=== PATIENT | male | born 1980 | race Caucasian/White ===

== ENCOUNTER 2021-08-30 12:54 | Outpatient (RCR) | payer BC, SELFPAY ==
[2021-08-30 13:32] VITALS: BP 143/112; PULSE 98; RESP 18; TEMP 36.4; BMI 68.5
--- NOTE | 2021-08-30 14:14 | PCM.WC.HP ---
History of Present Illness Date of Service: 08/30/21 Chief Complaint: Right second toe ulcer History of Wound: This 41-year-old male with significant past medical history of diabetes and hypertension sustained an injury on his second right toe from an elongated ingrown great toenail consistent with a laceration on August 12 after he was walking all day at work. 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 He was treated with dressings antibiotics. Throughout this healing process he developed a blister circumferentially and then subsequently a wound to the tip of his right second toe. He reports it has been red for a couple of weeks. He has been applying antibiotic ointment. He walks in a slide sandals today. He denies other known traumatic incident or odor or purulence. He denies claudication. He does have lack of complete sensation consistent with his type I diabetic neuropathy. Progress of Wound: cellulitis noted PFSH Home Medications amoxicillin-pot clavulanate [Augmentin] 1 tab PO BID #14 tab 08/30/21 [Rx Last Taken Unknown] insulin glargine [Lantus U-100 Insulin] 50 unit SUBCUT QPM 08/30/21 [History Last Taken Unknown] insulin lispro [Humalog Pen] 0 unit SUBCUT TID 08/30/21 [History Last Taken Unknown] lisinopril 20 mg PO DAILY 08/30/21 [History Last Taken Unknown] Allergy/AdvReac Type Severity Reaction Status Date / Time No Known Allergies Allergy Verified 08/30/21 13:27 Social History Smoking Status: Light Smoker (<10/day) ROS Constitutional Constitutional: Denies chills, fatigue or fever(s) Cardiovascular Cardiovascular: Reports erythema on extremities; Denies edema or nausea Respiratory/Chest Respiratory/Chest: Denies dyspnea Gastrointestinal Gastrointestinal: Denies vomiting Musculoskeletal Musculoskeletal: Reports numbness Integumentary Integumentary: Reports skin ulcer Neurologic Neurologic: Reports paresthesias Vital Signs Vital Signs Vital Signs: 08/30/21 13:32 Temperature 97.6 F L Temperature Source Temporal Pulse Rate 98 Respiratory Rate 18 Blood Pressure 143/112 H Blood Pressure Mean 122 Blood Pressure Source Monitor Blood Pressure Position Sitting Blood Pressure Location Left Arm Weight Weight: 290 kg Body Mass Index (BMI) 68.5 Physical Exam Const alert and oriented x3 General Appearance: cooperative HEENT normocephalic Extremity Extremity Narrative: No calf tenderness Diminished pulses Muscle wasting noted Dorsal contraction of lesser toes including the second toe No fluctuance or bogginess on palpation. General Extremity: edema and no tenderness to palpation of joints or extremities; Negative for cyanosis Skin Skin Narrative: no purulence, no streaking, no odor. Erythema to the extends to the distal half. No distinct bulbous shaped changes noted. No deep probing or necrosis. General Skin Exam: Negative for erythema Neuro Neuro Narrative: lack of normal epicritic sensation via light touch is consistent with neuropathy status Psych cooperative and affect normal Debridement Note Debridement Note Wound debrided: Right second toe Wound Grade/Stage: 1 Type of Debridement: Excisional debridement Anesthesia Used: 4% Lidocaine Solution Depth: in the subcutaneous layer Percentage of wound debrided: 100 Instrument Used: #15 blade Tissue Removed: fibrous, devitalized subcutaneous, biofilm, slough Severity: Fat Layer Exposed Amount of bleeding with debridement: Mild Bleeding Controlled with: Pressure Patient tolerated procedure: Patient tolerated procedure well Post-Debridement Measurements and Additional Note: Post-Debridement Measurements/Treatment - Nurse 1 - General Ulcer Assessment Start: 08/30/21 13:27 Freq: Status: Active Protocol: SUZAN Activity Type Activity Date Activity User E-Sign Co-Sign Detail Recorded Client Recorded Date Recorded By Document 08/30/21 13:32 [id number] 08/30/21 13:44 RB 08/30/21 13:32 - Today's Visit Information Type of service Initial Visit Arrival Mode Ambulatory Transfer Assistance None Patient Identification Verified (Name & Yes ) Patient Requires Transmission-Based No Precautions Height and Weight Height 6 ft 9 in Weight 290 kg Weight in Pounds 639.3 lbs Body Mass Index (BMI) 68.5 BMI Classification Obese BSA - Sherita 3.80 Vital Signs Temperature (97.8 F-99.1 F) 97.6 F L Temperature Source Temporal Pulse Rate (60-100) 98 Pulse Location Monitor Respiratory Rate (12-18) 18 Respiratory rate source Observation Blood Pressure (90/60-120/80) 143/112 H Blood Pressure Mean 122 Source Monitor Position Sitting Blood Pressure Location Left Arm History Since Last Visit- (Skip if this is Patient's initial visit) Have you changed medications since your No last visit? Any new allergies or adverse reactions No Had a fall/change in ADL's that may No increase risk of falls Signs or symptoms of abuse and/or No neglect since last visit Have you been in the hospital since your No last visit? Has dressing in place as prescribed Yes Has compression in place as prescribed No Has offloadiing in place as prescribed No Experienced any changes in pain level or No management Left Footwear Regular Shoe Right Footwear Regular Shoe Pain Scale: 0-10 Numeric Is Patient Pain Free? Yes Lower Extremity Assessment/ Foot Assessment/ Toe Nail Assessment Right -Posterior Tibial Palpable Yes -Dorsalis Pedis Palpable Yes -Extremity Color Normal -Hair Growth on Legs Yes -Hair Growth on Toes Yes -Temperature of Extremity Warm -Dependent Rubor No -Blanched when Elevated No -Lipodermatosclerosis No -Other Deformity No -Prior Foot Ulcer No -Charcot Joint No -Prior Amputation No -Thick No -Discolored No -Deformed No -Improper Length & Hygeine Yes Left -Posterior Tibial Palpable Yes -Dorsalis Pedis Palpable Yes -Extremity Color Normal -Hair Growth on Legs Yes -Hair Growth on Toes Yes -Temperature of Extremity Warm -Capillary Refill Greater than 3 Seconds -Dependent Rubor No -Blanched when Elevated No -Lipodermatosclerosis No -Other Deformity No -Prior Foot Ulcer No -Charcot Joint No -Prior Amputation No -Thick No -Discolored No -Deformed No -Improper Length & Hygeine Yes Neuropathy Assessment Feet - Top Side and Bottom <Entered> (a) Communication Assessment Preferred language Chinese Realtime Reporter Required No Able to Read Yes Able to Write Yes Communication Tools None Caregiver Communication Skills No Impairment Impairment Right Hearing Abillity Normal Left Hearing Abillity Normal Visual Assistive Devices Glasses Teaching Assessment Preferences Verbal,Written, Demonstration Barriers to Learning None Readiness To Learn Good Willingness to Engage in Self Management Med Activies Readiness to Engage in Self Management Med Activities Anxiety Level Calm Cooperation Cooperative Perception Coherent Interest in Health Problem Asks Questions Education Importance Acknowledges Need Does Patient Smoke tobacco or other Yes substances Smoking Status Light Smoker (< 10/day) Is Patient Diabetic Yes Functional Assessment Recent Decline in Ability to Perform Denies Any Declines Assistive Device With Patient No Culture/Zoroastrianism/Hot Header Operator Cultural/Zoroastrianism Needs that may affect No Treatment Plan Would you allow our hospital customs examiner to No meet you for the purpose of spiritual/ emotional support? Hot Header Operator to contact place of uatsdin No Teaching: Wound Center *Welcome to the Wound Center -Person Taught Patient -Teaching Method Discussion, Demonstration -Response to teaching Verbalize understanding (a) 1 - - throughout except lateral + bilateral feet WC - Nurse 1 - General Ulcer Measurement Start: 08/30/21 13:27 Freq: Status: Active Protocol: Activity Type Activity Date Activity User E-Sign Co-Sign Detail Recorded Client Recorded Date Recorded By Document 08/30/21 13:32 RB [id number] 08/30/21 13:44 RB 08/30/21 13:32 Wound Center Nurse 1 1. R second toe plantar -Combined with other wound No -Current Size (cm) - Length 1 -Current Size (cm) - Width 1.2 -Current Size (cm) - Depth 0.2 -Total Square Cm 1.2 -Photo Taken Yes -Tunneling No -Undermining/Tunneling No -Circular Undermining No -Exudate Amt Medium -Exudate Type Serosanguineous -Wound Margin Distinct, Outline Attached -Granulation Amt Large (67-100%) -Granulation Quality [place] -Slough/Fibrin Yes -Necrosis Amt Small (1-33%) -Necrotic Tissue Type Adherent Slough -Structure Exposed N/A -Texture (Daisy-wound Skin Appearance) Assessed,Callus -Moisture (Daisy-wound Skin Appearance) Assessed -Color (Daisy-wound Skin Appearance) Assessed -Temperature (Daisy-wound Skin No Abnormality Appearance) (Pt Warm) -Tenderness on Palpation (Daisy-wound No Skin Appearance) -Ulcer Cleansing Wound Cleanser -Foul Odor after Cleansing No -Anesthetic Used 4% Lidocaine Solution Lower Limb Edema Present Yes Right Calf (cm) 41 Right Ankle (cm) 27.5 Left Calf (cm) 42 Left Ankle (cm) 26 WC - Nurse 2 - General Ulcer CM Notes Start: 08/30/21 13:27 Freq: Status: Active Protocol: Activity Type Activity Date Activity User E-Sign Co-Sign Detail Recorded Client Recorded Date Recorded By Document 08/30/21 13:56 [id number] 08/30/21 14:09 08/30/21 13:56 Wound Center Nurse 2 1. R second toe plantar -Time 14:07 -Correct Patient Yes -Correct Side, Site, Position Yes -Correct Procedure Yes -Procedure Performed Yes -Type of Procedure Debridement -Clinical Debridement Subcutaneous -Tissue Removed Subcutaneous -Post Debridement (cm) - Length 1.1 -Post Debridement (cm) - Width 1.3 -Post Debridement (cm) - Depth 0.2 -Total Square (Post) (cm) 1.43 -Area of Debridement (cm) - Length 1.1 -Area of Debridement (cm) - Width 1.3 -Total Square (Area) (cm) 1.43 -Tunneling No -Undermining/Tunneling No -Circular Undermining No -Wound/Ulcer Outcome Not Healed -Ulcer Cleansing Rinsed/ Irrigated with Saline -Foul Odor after Cleansing No -Bioengineered Tissue No -Bleeding Controlled with Pressure -Offloading Yes -Type of Offloading Knee Walker -Debridement - Subq, 1st 20sq cm Yes Pain Scale: 0-10 Numeric Is Patient Pain Free? Yes Assessment/Plan Assessment/Plan (1) Non-pressure chronic ulcer of other part of right foot with fat layer exposed: CODE(S): L97.512 - Non-pressure chronic ulcer of other part of right foot with fat layer exposed (2) Hammertoe of right foot: CODE(S): M20.41 - Other hammer toe(s) (acquired), right foot (3) Type 1 diabetes, uncontrolled, with neuropathy: CODE(S): E10.40 - Type 1 diabetes mellitus with diabetic neuropathy, unspecified; E10.65 - Type 1 diabetes mellitus with hyperglycemia (4) Malnutrition: CODE(S): E46 - Unspecified protein-calorie malnutrition PLAN: I reviewed and discussed his case today. Debridement was performed today as noted in the clinical panel to all of the ulcer sites The following work up and care recommendations were made: Dressing: Aquacel Ag Wash: Antibacterial soap water Tissue growth optimization: Will be considered if lack of healing progress is noted Offload: To heel weightbearing surgical shoe. He wears a size 15-16 and there is not an appropriate size available today. A written prescription with dual density offloading Plastizote liners with pocket was provided for him to obtain at the foot and ankle Center. He will call to schedule this. Vascular: He has great pulses and hair to lower extremity. If he has lack of healing after 1 month noninvasive vascular studies will be ordered. Edema: Controlled Infection: Erythema is noted without purulence or odor. I recommend Augmentin. This was electronically sent to [facility] in [place]. After debridement aerobic, anaerobic, and MRSA PCR cultures were obtained. He understands updated antibiotics may be recommended after the results are reviewed. I recommend further work-up with a foot x-ray and labs (CBC, CMP, A1c, ESR, CRP). Self-reported last A1c was 7.1%. Orders were provided. Pain: Controlled due to neuropathy Host factors: He has type 1 diabetes and he also smokes. He understands glucose management is imperative for healing. He is amendable to see food and beverage service manager and a referral was provided today. I also recommend nutritional supplements of David. Sample was provided. He was advised on smoking cessation. Anticipated healing time was reviewed. He is concerned about how he has to walk all day at work. He will look into short-term disability options and he was advised given the forms to fill out if he elects to proceed forward. He understands he is at risk for amputation further infection due to his comorbidities. I answered all the patient's questions. To return to the wound healing center in 1 week or call sooner if the patient has any questions or concerns. Note: [email or web address] speech recognition electric razor assembler software was used to create portions of this document. Sound-alike and misspelled words, as well as other electric razor assembler errors may be contained in the documentation. The medical decision making level is moderate based on data including at least three of the following: review of prior external notes, review of a test, ordering a test, assessment requiring an independent historian. The medical decision making level is moderate. There is noted moderate risk of morbidity after considering this treatment plan and diagnostic data. Considerations were given to prescription management, decisions regarding surgical options, or social determinants of health. The problems addressed require a moderate decision making level which includes one or more chronic illnesses (w/ exacerbation, progression, or side effects), two or more stable chronic illnesses, one undiagnosed new problem w/ uncertain prognosis, one acute illness with systemic symptoms, or one acute complicated injury.
[2021-08-31 14:53] LABS: M R Staph aureus DNA By PCR Negative (Negative); Probe Check PASS; Specimen Processing Control PASS; Staph aureus DNA By PCR POSITIVE (Negative)
== END 2021-09-03 23:59 ==
LOC: WC 12:54
PROVIDERS: PCP Family Medicine; Visit Provider Podiatrist
DX: E10.621 Type 1 diabetes mellitus with foot ulcer (principal); L97.512 Non-pressure chronic ulcer of other part of right foot with fat layer exposed; M20.41 Other hammer toe(s) (acquired), right foot; E10.40 Type 1 diabetes mellitus with diabetic neuropathy, unspecified; E10.65 Type 1 diabetes mellitus with hyperglycemia; E46 Unspecified protein-calorie malnutrition; I10 Essential (primary) hypertension; F17.200 Nicotine dependence, unspecified, uncomplicated; Z79.4 Long term (current) use of insulin
CPT/HCPCS: 11042; 87070; 87075; 87077; 87186; 87205; 87640; 99213; G0463

== ENCOUNTER 2021-09-06 13:30 | Outpatient (RCR) | payer BC, SELFPAY ==
[2021-09-04 00:34] VITALS: BP 143/112; PULSE 98; RESP 18; TEMP 36.4; BMI 68.5
[2021-09-06 13:28] VITALS: BP 141/100; PULSE 102; RESP 18; TEMP 36.1; BMI 68.5
--- NOTE | 2021-09-06 14:36 | PN.PCM_ITS ---
History of Present Illness Date of Service: 09/06/21 Chief Complaint: Right second toe ulcer History of Wound: This 41-year-old male with significant past medical history of diabetes and hypertension sustained an injury on his second right toe from an elongated ingrown great toenail consistent with a laceration on August 12 after he was walking all day at work. 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 He was treated with dressings antibiotics. Throughout this healing process he developed a blister circumferentially and then subsequently a wound to the tip of his right second toe. He reports it has been red for a couple of weeks and the intensity has reduced since he is on antibiotics however it is still present. He has been changing the dressing as advised. He denies fever, chill, nausea, vomiting, worsening pain, odor or increased drainage. Progress of Wound: Stable Objective Data Objective Data Vital Signs: Vital Signs Temp Pulse Resp BP 97 F L 102 H 18 141/100 H 09/06/21 13:28 09/06/21 13:28 09/06/21 13:28 09/06/21 13:28 Weight: 290 kg Body Mass Index (BMI) 68.5 Lab / Micro Data Result Diagrams: 09/06/21 14:17 09/06/21 14:17 Physical Exam Const alert and oriented x3 General Appearance: cooperative HEENT normocephalic Extremity Extremity Narrative: No calf tenderness Diminished pulses Muscle wasting noted Dorsal contraction of lesser toes including the second toe No fluctuance or bogginess on palpation. General Extremity: edema and no tenderness to palpation of joints or extremities; Negative for cyanosis Skin Skin Narrative: no purulence, no streaking, no odor. Erythema to the extends to the distal quarter and has reduced intensity. No distinct bulbous shaped changes noted. No deep probing or necrosis. General Skin Exam: Negative for erythema Neuro Neuro Narrative: lack of normal epicritic sensation via light touch is consistent with neuropathy status Psych cooperative and affect normal Debridement Note Debridement Note Wound debrided: Right distal second toe Wound Grade/Stage: 1 Type of Debridement: Excisional debridement Anesthesia Used: 4% Lidocaine Solution Depth: in the subcutaneous layer Percentage of wound debrided: 100 Instrument Used: #15 blade Tissue Removed: fibrous, devitalized subcutaneous, biofilm, slough Severity: Fat Layer Exposed Amount of bleeding with debridement: Mild Bleeding Controlled with: Pressure Patient tolerated procedure: Patient tolerated procedure well Post-Debridement Measurements and Additional Note: Post-Debridement Measurements/Treatment - Nurse 1 - General Ulcer Assessment Start: 09/06/21 13:28 Freq: Status: Active Protocol: SUZAN Activity Type Activity Date Activity User E-Sign Co-Sign Detail Recorded Client Recorded Date Recorded By Document 09/06/21 13:28 RB Desktop 09/06/21 13:30 RB 09/06/21 13:28 WC - Today's Visit Information Type of service Follow-up Visit (Physician/SYSTEMS SOFTWARE DESIGNER ) Arrival Mode Ambulatory Transfer Assistance None Patient Identification Verified (Name & Yes ) Patient Requires Transmission-Based No Precautions Finger Stick Blood Sugar(mg/dl) (if 162 indicated): Blood Sugar Stated by Patient Height and Weight Body Mass Index (BMI) 68.5 BMI Classification Obese Vital Signs Temperature (97.8 F-99.1 F) 97 F L Temperature Source Temporal Pulse Rate (60-100) 102 H Pulse Location Monitor Respiratory Rate (12-18) 18 Respiratory rate source Observation Blood Pressure (90/60-120/80) 141/100 H Blood Pressure Mean (mm Hg) 113 Source Monitor Position Semi-Fowlers Blood Pressure Location Left Arm History Since Last Visit- (Skip if this is Patient's initial visit) Have you changed medications since your No last visit? Any new allergies or adverse reactions No Had a fall/change in ADL's that may No increase risk of falls Signs or symptoms of abuse and/or No neglect since last visit Have you been in the hospital since your No last visit? Has dressing in place as prescribed Yes Has compression in place as prescribed No Has offloadiing in place as prescribed No Experienced any changes in pain level or No management Left Footwear Regular Shoe Right Footwear Regular Shoe Pain Scale: 0-10 Numeric Is Patient Pain Free? Yes - Nurse 1 - General Ulcer Measurement Start: 09/06/21 13:28 Freq: Status: Active Protocol: Activity Type Activity Date Activity User E-Sign Co-Sign Detail Recorded Client Recorded Date Recorded By Document 09/06/21 13:28 RB Desktop 09/06/21 13:30 RB 09/06/21 13:28 Wound Center Nurse 1 1. R second toe plantar -Combined with other wound No -Current Size (cm) - Length 1.2 -Current Size (cm) - Width 1.2 -Current Size (cm) - Depth 0.2 -Total Square Cm 1.44 -Tunneling No -Undermining/Tunneling No -Circular Undermining No -Exudate Amt Medium -Exudate Type Serosanguineous -Wound Margin Flat & Intact -Granulation Amt Medium (34-66%) -Granulation Quality Red -Slough/Fibrin Yes -Necrosis Amt Medium (34-66%) -Necrotic Tissue Type Adherent Slough -Structure Exposed N/A -Texture (Daisy-wound Skin Appearance) Assessed,Callus -Moisture (Daisy-wound Skin Appearance) Assessed -Color (Daisy-wound Skin Appearance) Assessed -Temperature (Daisy-wound Skin No Abnormality Appearance) (Pt Warm) -Tenderness on Palpation (Daisy-wound No Skin Appearance) -Ulcer Cleansing Wound Cleanser -Foul Odor after Cleansing No -Anesthetic Used 4% Lidocaine Solution CHRIS - Nurse 2 - General Ulcer CM Notes Start: 09/06/21 13:28 Freq: Status: Active Protocol: Activity Type Activity Date Activity User E-Sign Co-Sign Detail Recorded Client Recorded Date Recorded By Document 09/06/21 13:46 LAUREN [id number] 09/06/21 13:49 LAUREN 09/06/21 13:46 Wound Center Nurse 2 -Time 13:48 -Correct Patient Yes -Correct Side, Site, Position Yes -Correct Procedure Yes -Procedure Performed Yes -Type of Procedure Debridement -Clinical Debridement Subcutaneous -Tissue Removed Subcutaneous -Post Debridement (cm) - Length 1.2 -Post Debridement (cm) - Width 1.3 -Post Debridement (cm) - Depth 0.2 -Total Square (Post) (cm) 1.56 -Area of Debridement (cm) - Length 1.2 -Area of Debridement (cm) - Width 1.3 -Total Square (Area) (cm) 1.56 -Tunneling No -Undermining/Tunneling No -Circular Undermining No -Wound/Ulcer Outcome Not Healed -Ulcer Cleansing Rinsed/ Irrigated with Saline -Foul Odor after Cleansing No -Bioengineered Tissue No -Bleeding Controlled with Pressure -Offloading No -Treatment Response Procedure Tolerated Well -Debridement - Subq, 1st 20sq cm Yes Pain Scale: 0-10 Numeric Is Patient Pain Free? Yes CHRIS - Nurse 3 - General Ulcer D/C NN Start: 09/06/21 13:28 Freq: Status: Active Protocol: Activity Type Activity Date Activity User E-Sign Co-Sign Detail Recorded Client Recorded Date Recorded By Document 09/06/21 14:02 RB Desktop 09/06/21 14:03 RB 09/06/21 14:02 Wound Care Nurse 3 1. R second toe plantar -Ulcer Cleansing Rinsed/ Irrigated with Saline -Primary Dressing Applied Aquacel AG 4x4 -Primary Dressing Covered/Secured with Dry Gauze,Dry Gauze & Roll Gauze,Secured with Tape -Aquacel AG 4x4 1 Treatment Response Procedure Tolerated Well Pain Scale: 0-10 Numeric Is Patient Pain Free? Yes WC - Visit Discharge Discharge Condition Stable Ambulatory Status Ambulatory Transportation Private Auto Medication Reconcilliation completed & No provided to patient/care provider Clinical Summary of Care Provided Yes Assessment/Plan Assessment/Plan (1) Non-pressure chronic ulcer of other part of right foot with fat layer exposed: CODE(S): L97.512 - Non-pressure chronic ulcer of other part of right foot with fat layer exposed (2) Hammertoe of right foot: CODE(S): M20.41 - Other hammer toe(s) (acquired), right foot (3) Type 1 diabetes, uncontrolled, with neuropathy: CODE(S): E10.40 - Type 1 diabetes mellitus with diabetic neuropathy, unspecified; E10.65 - Type 1 diabetes mellitus with hyperglycemia (4) Malnutrition: CODE(S): E46 - Unspecified protein-calorie malnutrition PLAN: I reviewed and discussed his case today. Debridement was performed today as noted in the clinical panel to all of the ulcer sites The following work up and care recommendations were made: Dressing: Aquacel Ag Wash: Antibacterial soap water Tissue growth optimization: Will be considered if lack of healing progress is noted Offload: To heel weightbearing surgical shoe. He wears a size 15-16 and there is not an appropriate size available today. A written prescription with dual density offloading Plastizote liners with pocket was provided for him to obtain at the [facility]. He will call to schedule this. It is noted he did not do this yet he was advised on compliance needed for healing. Vascular: He has great pulses and hair to lower extremity. If he has lack of healing after 1 month noninvasive vascular studies will be ordered. Edema: Controlled Infection: Erythema is noted without purulence or odor; this is reduced but still present. I reviewed his culture results and would like to provide antibiotic but with doxycycline this time. This was electronically sent to [facility] in [place]. After debridement aerobic, anaerobic, and MRSA PCR cultures were obtained and the current results are noted including MSSA and Staph epidermidis. I recommend further work-up with a foot x-ray and labs (CBC, CMP, A1c, ESR, CRP). He did not get these yet and I advised him to get this today prior to heading home. Self-reported last A1c was 7.1%. The results were reviewed after clinic. It appears he still did not get his foot x-ray. His labs were reviewed with a white blood cell count of 9.6, ESR 13, C-reactive protein of less than 2.9. His updated A1c is 6.9%. His reduced kidney function is noted with a GFR of 43 and creatinine of 1.85. Pain: Controlled due to neuropathy Host factors: He has type 1 diabetes and he also smokes. He understands glucose management is imperative for healing. He is amendable to see warehouse puller and a referral was provided today. I also recommend nutritional supplements of David. Sample was provided. He was advised on smoking cessation. Anticipated healing time was reviewed. He is concerned about how he has to walk all day at work. He will look into short-term disability options and he was advised given the forms to fill out if he elects to proceed forward. He understands he is at risk for amputation further infection due to his comorbidities. I answered all the patient's questions. To return to the wound healing center in 1 week or call sooner if the patient has any questions or concerns. Note: [employer] speech recognition nitric acid concentrator operator software was used to create portions of this document. Sound-alike and misspelled words, as well as other nitric acid concentrator operator errors may be contained in the documentation. The medical decision making level is limited based on data including the review of prior external notes, review of a prior test, or ordering a test. The problems addressed require a low medical decision making level which includes two or more minor problems, a stable chronic illness, or an acute uncomplicated illness or injury.
[2021-09-06 14:39] LABS: Erythrocyte Sedimentation Rate 13 mm/hr (0-20)
[2021-09-06 14:40] LABS: Absolute Lymphocyte Count 1.89 X10^3/uL (0.83-4.51); Absolute Neutrophil Count 6.3 X10^3/uL (2.0-7.7); Basophil# 0.03 X10^3/uL; Basophil% 0.3 % (0-1); Eosinophil# 0.52 X10^3/uL; Eosinophils% 5.4 % (0-5); Hematocrit 41.6 % (40-54); Hemoglobin 13.4 g/dL (13.0-16.5); Lymphocyte # 1.89 X10^3/ul (0.83-4.51); Lymphocyte % 19.7 % (19-41); Mean Corp Hgb Conc 32.2 g/dL (32-36); Mean Corpuscular Hgb 28.9 pg (27.0-32.0); Mean Corpuscular Volume 89.8 fL (80-94); Mean Platelet Vol. 9.9 fl (6.2-12.0); Monocyte# 0.78 X10^3/uL; Monocyte% 8.1 % (0-10); NRBC Flagged by Analyzer 0 % (0-5); Neutrophil % 65.8 % (47-70); Platelet Count 287 K/mm3 (150-450); RBC Distribution Width CV 12.6 % (11.6-14.6); RBC Distribution Width SD 41.1 fl (35.1-43.9); Red Blood Count 4.63 M/mm3 (4.6-6.2); White Blood Count 9.6 K/mm3 (4.4-11.0)
[2021-09-06 14:56] LABS: Hemoglobin A1c 6.9 % (3.8-5.6)
[2021-09-06 15:05] LABS: ALB/GLOB Ratio 0.9 RATIO (0.9-2.4); AST(SGOT) 17 U/L (15-37); Alanine Aminotransfer ALT/SGPT 25 U/L (16-61); Albumin, Serum 3.7 g/dL (3.2-5.0); Alkaline Phosphatase 94 U/L (45-117); Anion Gap 1 (5-15); BUN 27 mg/dL (7-18); BUN/Creat Ratio 14.6 RATIO (10-20); CRP < 2.90 mg/L (0.0-3.0); Calcium,Total 9.3 mg/dL (8.5-10.1); Chloride 108 mmol/L (98-107); Creatinine, Serum 1.85 mg/dL (0.70-1.30); EST Glomerular Filtration Rate 43 mL/min (>60); Est Glom Filt Rate - Afr Amer 52 mL/min (>60); Glucose 198 mg/dL (74-106); Potassium 4.9 mmol/L (3.5-5.1); Protein, Total 7.7 g/dL (6.4-8.2); Sodium Level 137 mmol/L (136-145)
== END 2021-10-03 23:59 ==
LOC: WC 13:30
PROVIDERS: PCP Family Medicine; Visit Provider Podiatrist
DX: E10.621 Type 1 diabetes mellitus with foot ulcer (principal); L97.512 Non-pressure chronic ulcer of other part of right foot with fat layer exposed; M20.41 Other hammer toe(s) (acquired), right foot; E46 Unspecified protein-calorie malnutrition; E10.40 Type 1 diabetes mellitus with diabetic neuropathy, unspecified; E10.65 Type 1 diabetes mellitus with hyperglycemia; F17.200 Nicotine dependence, unspecified, uncomplicated; I10 Essential (primary) hypertension; Z79.4 Long term (current) use of insulin
CPT/HCPCS: 11042; 36415; 80053; 83036; 85025; 85652; 86140